=== PATIENT | male | born 1985 | race Caucasian/White ===

== ENCOUNTER 2018-06-10 05:49 | Emergency (ER) | payer OTHER ==
--- NOTE | 2018-06-10 06:05 | ED ---
Back Pain HPI - General Chief Complaint: Back Pain/Injury Stated Complaint: back pain,SOB Time Seen by Provider: 06/10/18 06:05 Source: patient Limitations: no limitations - History of Present Illness Initial Comments: Joaquin is a previously healthy 33-year-old male who presents to the emergency department today for evaluation of upper back pain. The patient does have a history of multiple skeletal skeletal injuries in the past as he was in the [employer]. Patient reports he's been in his usual state of health recently. He reports that he Should go the restroom during the night and when he went back to bed he twisted funny and felt an immediate pain in his upper back. Pain is described as being in the paraspinal region between his thoracic spine and his scapula. Pain is worse with certain movements and twisting. Pain seems to resolve when he sits resting comfortably. Patient reports the pain makes it uncomfortable to take a deep breath, he attempted to take Motrin with no improvement so he decided come to the ER for reevaluation. Patient reports he' s had muscular skeletal pain requiring treatment with anti-inflammatories and muscle relaxers in the past. Patient has no cardiac or pulmonary history. Patient has no history of DVT or PE, no risk factors for PE. She has no history of spontaneous pneumothorax. - Related Data Previous Rx's Medication Instructions Recorded Ibuprofen [Motrin] 800 mg PO TID #30 tab 06/10/18 Methocarbamol [Robaxin-750] 750 mg PO TID #30 tablet 06/10/18 Allergies Allergy/AdvReac Type Severity Reaction Status Date / Time Penicillins Allergy Unknown Verified 06/10/18 07:02 Childhood acetaminophen [From Percocet] AdvReac Nausea & Verified 06/10/18 07:02 Vomiting oxycodone [From Percocet] AdvReac Nausea & Verified 06/10/18 07:02 Vomiting Review of Systems ROS Statement: Those systems with pertinent positive or pertinent negative responses have been documented in the HPI. ROS Other: All systems not noted in ROS Statement are negative. Past Medical History Past Medical History: No Reported History History of Any Multi-Drug Resistant Organisms: None Reported Past Surgical History: No Surgical Hx Reported Past Psychological History: Bipolar Smoking Status: Never smoker Past Alcohol Use History: Occasional Past Drug Use History: Marijuana General Exam - General Exam Comments Initial Comments: Physical Exam GENERAL: Patient is well-developed and well-nourished. Patient is nontoxic and well- hydrated and is in no distress. HENT: Normocephalic, Atraumatic. EYES: PERRL, EOMI PULMONARY: Unlabored respirations. No audible rales rhonchi or wheezing was noted. CARDIOVASCULAR: There is a regular rate and rhythm without any murmurs gallops or rubs. ABDOMEN: Soft and nontender with normal bowel sounds. SKIN: Skin is clear with no lesions or rashes and otherwise unremarkable. : Deferred NEUROLOGIC: Patient is alert and oriented x3. Moving all extremities spontaneously MUSCULOSKELETAL: Normal extremities with adequate strength and full range of motion. No lower extremity swelling or edema. No calf tenderness. PSYCHIATRIC: Normal psychiatric evaluation. Limitations: no limitations Limitations: no limitations Course Vital Signs 06/10/18 06/10/18 06/10/18 05:58 06:37 09:15 Temperature 97.9 F 97.8 F 97.8 F Pulse Rate 73 82 78 Respiratory 18 16 16 Rate Blood Pressure 132/83 130/100 125/64 O2 Sat by Pulse 98 95 99 Oximetry Medical Decision Making - Medical Decision Making The patient was seen and evaluated, history was obtained from the patient. This is a healthy 33-year-old male presenting for what appears to be a musculoskeletal upper back pain which is worse with twisting and resolves when he is sitting comfortably. Chest x-ray and EKG will be ordered Toradol and Norflex given Chest x-ray and EKG were unremarkable, patient was reevaluated after meds reports some improvement, is reassured that chest x-ray and EKG look well. At this time patient's agreeable to plan for discharge home with by mouth Robaxin and Motrin. All questions pertaining to care were answered, supportive care measures including alternating heat and ice, gentle movement, not laying in bed for too long as this will worsen muscle spasm were discussed. Patient discharged home in stable condition. Disposition Clinical Impression: Muscle spasm Disposition: HOME SELF-CARE Condition: Good Instructions: Muscle Spasm (ED) Prescriptions: Ibuprofen [Motrin] 800 mg PO TID #30 tab Methocarbamol [Robaxin-750] 750 mg PO TID #30 tablet Is patient prescribed a controlled substance at d/c from ED?: No Referrals: None,Stated [Primary Care Provider] - 1-2 days Time of Disposition: 09:01
[2018-06-10 06:38] VITALS: RESP 16; TEMP 97.8
[2018-06-10] MEDS ORDERED: ORPHENADRINE 30 MG/ML 2 ML VIAL IM STA (07:39)
[2018-06-10] MEDS ORDERED: KETOROLAC 30 MG/ML 1 ML VIAL IM STA (07:40)
--- NOTE | 2018-06-10 08:34 | XR ---
EXAMINATION TYPE: XR chest 2V DATE OF EXAM: 06/10/2018 COMPARISON: NONE HISTORY: Chest pain TECHNIQUE: Frontal and lateral views of the chest are obtained. FINDINGS: There is no focal air space opacity. No evidence for pneumothorax. No pleural effusion. The cardiac silhouette size is within normal limits. The osseous structures are grossly intact. IMPRESSION: 1. No acute cardiopulmonary process.
[2018-06-10 09:19] VITALS: BP 125/64; PULSE 78
== END 2018-06-10 09:15 | disposition home or self-care (01) ==
LOC: EC 05:49
DX: M62.830 Muscle spasm of back (principal); R06.02 Shortness of breath; Z88.0 Allergy status to penicillin; Z88.6 Allergy status to analgesic agent; Z88.8 Allergy status to other drugs, medicaments and biological substances
CPT/HCPCS: 93005; 71046; 99283; 96372 ×2; J2360; J1885